=== PATIENT | male | born 1970 | race Caucasian/White ===

== ENCOUNTER 2018-08-13 06:13 | Emergency (ER) | payer OTHER ==
[2018-08-13 06:20] VITALS: BP 153/99; PULSE 85; RESP 18; TEMP 98.3
[2018-08-13] MEDS ORDERED: DEXAMETHASONE SOD PHOSPHATE 10 MG/ML 1 ML VIAL IM STA (07:14)
--- NOTE | 2018-08-13 07:17 | ED ---
General Adult HPI - General Chief complaint: ENT Stated complaint: Difficulty swallowing Time Seen by Provider: 08/13/18 07:02 Source: patient, RN notes reviewed Mode of arrival: ambulatory Limitations: no limitations - History of Present Illness Initial comments: Patient 47-year-old male presenting to the emergency room today with a chief complaint of a sore throat that started yesterday. He does admit that hurts when he swallows. Did see his family doctor yesterday. Was prescribed azithromycin. States did not take the first dose until this morning. Patient admits pain Mouth at night and had difficult time sleeping. Patient states he has been able to eat and drink but does have increased pain when he swallows. Patient denies any difficulty swallowing. He denies any other complaints or symptoms. Patient denies any recent fever, chills, shortness of breath, chest pain, back pain, abdominal pain, nausea or vomiting, numbness or tingling, headaches or visual changes, or any other complaints. - Related Data Home Medications Medication Instructions Recorded Confirmed Lansoprazole [Prevacid] 30 mg PO DAILY 07/16/14 01/17/16 Lisinopril-Hctz 10-12.5 mg 1 each PO DAILY 07/16/14 01/17/16 [Zestoretic 10-12.5] Allergies Allergy/AdvReac Type Severity Reaction Status Date / Time Penicillins Allergy Unknown Swelling Verified 08/13/18 06:20 Review of Systems ROS Statement: Those systems with pertinent positive or pertinent negative responses have been documented in the HPI. ROS Other: All systems not noted in ROS Statement are negative. Past Medical History Past Medical History: Hypertension Additional Past Medical History / Comment(s): RECENT BLOOD IN STOOL. Palpitations History of Any Multi-Drug Resistant Organisms: None Reported Additional Past Surgical History / Comment(s): CYST ON WRIST REMOVED. Loop recorder Past Anesthesia/Blood Transfusion Reactions: No Reported Reaction Past Psychological History: No Psychological Hx Reported Smoking Status: Former smoker Past Alcohol Use History: None Reported Past Drug Use History: None Reported General Exam - General Exam Comments Initial Comments: General: The patient is awake and alert, in no distress, and does not appear acutely ill. Eye: There is normal conjunctiva bilaterally. No signs of icterus. Ears, nose, mouth and throat: There are moist mucous membranes and no oral lesions. Uvula midline. Increased redness erythema to the posterior pharynx with positive exudate. Tonsils 2+. Neck: The neck is supple, there is no tenderness or JVD. Musculoskeletal: Normal ROM, no tenderness. Strength 5/5. Sensation intact. Pulses equal bilaterally 2+. Neurological: A&O x 3. CN II-XII intact, There are no obvious motor or sensory deficits. Coordination appears grossly intact. Speech is normal. Skin: Skin is warm and dry and no rashes or lesions are noted. Psychiatric: Cooperative, appropriate mood & affect, normal judgment. Limitations: no limitations Course Vital Signs 08/13/18 06:16 Temperature 98.3 F Pulse Rate 85 Respiratory 18 Rate Blood Pressure 153/99 O2 Sat by Pulse 99 Oximetry Medical Decision Making - Medical Decision Making 47-year-old male presenting for sore throat that started yesterday. States that did not start antibiotic to this morning. Patient does admit to soreness when he swallows. Uvula midline. Tonsils are 2+ with positive exudate. Patient was started on azithromycin due to ALLERGY to penicillin yesterday. Did take first dose this morning. Patient will be given dose of steroids here in emergency room. He is advised close follow-up return to the emergency room if any symptoms increase worsen. He states understanding and is in agreement. Disposition Clinical Impression: Acute pharyngitis Disposition: HOME SELF-CARE Condition: Good Instructions: Strep Throat (ED) Additional Instructions: Please continue antibiotics as previously described. Please use Tylenol/ ibuprofen for pain. Please follow-up with family doctor in the next 2 days of symptoms have not improved. Please return to emergency room if the symptoms increase or worsen or for any other concerns. Is patient prescribed a controlled substance at d/c from ED?: No Referrals: Marion Pierce DO [Primary Care Provider] - 1-2 days Time of Disposition: 07:17
== END 2018-08-13 07:41 | disposition home or self-care (01) ==
LOC: EC 06:13
DX: J02.9 Acute pharyngitis, unspecified (principal); I10 Essential (primary) hypertension; Z79.899 Other long term (current) drug therapy; Z88.0 Allergy status to penicillin; Z87.891 Personal history of nicotine dependence
CPT/HCPCS: 99283; 96372; J1100

== ENCOUNTER → 2018-08-17 | Outpatient (CLI) | payer OTHER ==
--- NOTE | 2018-08-17 11:32 | CT ---
EXAMINATION TYPE: CT soft tissue neck w con DATE OF EXAM: 08/17/2018 COMPARISON: None HISTORY: 47-year-old male with pain, Pharyngitis and peritonsillar abscess. TECHNIQUE: Contiguous axial scanning of the soft tissues of the neck performed with IV Contrast, morgan ent injected with 100 mL of Isovue M300. Coronal/sagittal reconstructions performed. CT DLP: 875 mGycm Automated exposure control for dose reduction was used. FINDINGS: Visualized intracranial structures, mastoid air cells, and orbits and globes appear intact. Large muc osal retention cyst along the floor of the left maxillary sinus. Rightward nasal septal deviation. Nasopharynx is clear. There is enlargement of the bilateral tubal and palatine tonsils, right greater than left. There is a 4 mm tonsilolith on the left. Prominent inflammation and edema is present along the right posterolateral oropharyngeal space along with prevertebral soft tissue thickening and some tracking retropharyngeal effusion down to the C5 le nabil. There is a right-sided peritonsillar abscess measuring 1.7 x 0.6 x 1.5 cm, refer to axial image 37 and coronal image 45. The asymmetric soft tissue swelling and inflammation causes enlargement of the right-sided strap musc les and right posterolateral hypopharyngeal region. Asymmetric effacement of the right piriform sinus . No abnormal effusion tracking down into the thorax. No yoana airway compromise is seen. Visualized upper lungs are clear. Thyroid, submandibular, and parotid glands appear satisfactory. Prominent upper cervical lymph nodes measure up to 1.4 cm, right greater than left, likely reactive. IMPRESSION: 1. RETROPHARYNGEAL CELLULITIS EXTENDING UP FROM THE TUBAL TONSILS DOWN ALONG THE RETROPHARYNGEAL LUISA ON TO THE C5 LEVEL. INFLAMMATION IS ASYMMETRICALLY GREATER ON THE RIGHT AND THERE IS A 1.7 CM RIGHT P ERITONSILLAR ABSCESS. 2. SOME REACTIVE VERSUS CONTIGUOUS INFLAMMATION OF THE RIGHT-SIDED STRAP MUSCLES. 3. 4 MM TONSILOLITH ON THE LEFT.
== END | disposition home or self-care (01) ==
LOC: RADCTMAIN 10:21
PROVIDERS: ATTEND Family Medicine
DX: J39.0 Retropharyngeal and parapharyngeal abscess (principal); J35.8 Other chronic diseases of tonsils and adenoids
CPT/HCPCS: 70491; Q9967

== ENCOUNTER → 2020-06-23 | Outpatient (CLI) | payer OTHER ==
--- NOTE | 2020-06-23 18:16 | MR ---
EXAMINATION TYPE: MR knee RT wo con DATE OF EXAM: 06/23/2020 COMPARISON: None available. HISTORY: Rt knee pain TECHNIQUE: Multiplanar, multisequence imaging of the right knee is performed without IV contrast. FINDINGS: MEDIAL MENISCUS: Mucoid degeneration with subtle horizontal tear of the body and posterior horn junct ion (series 301 image 6). LATERAL MENISCUS: Anterior and posterior horns are intact without tear. CRUCIATE LIGAMENTS: Moderate mucoid degeneration of the anterior and posterior cruciate ligaments wit hout full-thickness disruption. COLLATERAL LIGAMENTS: The medial collateral ligament and lateral collateral ligament complex are inta ct and unremarkable. EXTENSOR MECHANISM: Visualized quadriceps and patellar tendons are intact. EFFUSION: Small joint effusion. POPLITEAL CYST: No popliteal/forman cyst. TRICOMPARTMENT SPACES: Mild thinning of the medial compartment articular cartilage, otherwise intact also. CARTILAGE: No significant chondral defect. BONE MARROW SIGNAL: No focal abnormal marrow signal is appreciated. OTHER: No additional significant abnormality is appreciated. IMPRESSION: Mucoid degeneration of the medial meniscus with subtle horizontal tear of the body and posterior horn junction. Moderate mucoid degeneration of the anterior and posterior cruciate ligaments, can be seen with prior partial thickness injury. No evidence of full-thickness tear. Mild osteoarthritis of the medial compartment.
== END | disposition home or self-care (01) ==
LOC: RADMRIMAIN 14:50
PROVIDERS: ATTEND Family Medicine
DX: M17.11 Unilateral primary osteoarthritis, right knee (principal); S83.241A Other tear of medial meniscus, current injury, right knee, initial encounter

== ENCOUNTER → 2020-08-22 | Outpatient (CLI) | payer OTHER ==
--- NOTE | 2020-08-22 16:34 | CT ---
"EXAMINATION TYPE: CT abdomen w con DATE OF EXAM: 08/22/2020 COMPARISON: None. HISTORY: Right and left sided upper abdominal pain x3 weeks. Left lower quadrant pain and splenomegal y. CT DLP: 1342 mGycm, Automated Exposure Control for Dose Reduction was Utilized. CONTRAST: CT scan of the abdomen is performed with oral and with IV Contrast, patient injected with 100ml mL of Isovue 300. FINDINGS: LUNG BASES: No significant abnormality is appreciated. LIVER/GB: Markedly contracted gallbladder with 2 mm calcification towards the neck. Surrounding mild to moderate fat stranding or inflammatory change. PANCREAS: No significant abnormality is seen. SPLEEN: Mild splenomegaly at 13.5 cm long axis coronal image 75. ADRENALS: No significant abnormality is seen. KIDNEYS: No significant abnormality is seen. BOWEL: Oral contrast does not reach ileal level making evaluation of distal bowel slightly suboptimal . Scattered distal colonic diverticula. No CT evidence for acute diverticulitis. Normal-appearing soham endix seen from cecum. No suspicious small or large bowel dilatation. Fourth portion of duodenum does not extend to level of gastric antrum consistent with underlying malrotation. LYMPH NODES: No greater than 1cm abdominal lymph nodes are appreciated. OSSEOUS STRUCTURES: Iggs-kk-xmyolshm multilevel disc space narrowing. Posterior disc herniation effac es the anterior thecal sac L4-L5 level. OTHER: No significant additional abnormality is seen. IMPRESSION: Contracted gallbladder with 2 to 3 mm stone in neck and moderate surrounding inflammatory change. Possible acute cholecystitis. Correlate clinically. A [place] level critical message alert has been initiated for Marion Pierce DO via the [employer] 36 0 | Critical Results System on 08/22/2020 4:32 PM. This message alert has been sent to Marion Pierce DO via the preferences provided by the clinician for the receipt of Radiology Critical Findings. [facility] ID [id number]."
== END | disposition home or self-care (01) ==
LOC: RADCTMAIN 15:10
PROVIDERS: ATTEND Family Medicine
DX: K80.11 Calculus of gallbladder with chronic cholecystitis with obstruction (principal); R16.1 Splenomegaly, not elsewhere classified
CPT/HCPCS: 74160; Q9967

== ENCOUNTER → 2020-09-02 | Day surgery (SDC) | payer OTHER ==
[2020-08-29 14:22] VITALS: BMI 39.0
[~2020-09-02] MED LIST: ACETAMINOPHEN TAB 500 MG TAB PO PRN; BUPIVACAINE (PF) 0.5% 30 ML VIAL SQ ONE; CLINDAMYCIN 900 MG in DEXTROSE 5% IN WATER 50 ML IVPB PRN; DEXAMETHASONE SOD PHOSPHATE 4 MG/ML 1 ML VIAL IV ONE; GENTAMICIN 40 MG/ML 2 ML VIAL ONE; GENTAMICIN 440 MG in SODIUM CHLORIDE 0.9% 100 ML IVPB PRN; GLYCOPYRROLATE 0.2 MG/ML 2 ML VIAL ONE; HEPARIN SODIUM,PORCINE 5,000 UNIT/ML 1 ML VIAL SQ PRN; HYDROmorphone 0.5 MG/0.5 ML SYRINGE IVP PRN; KETOROLAC 15 MG/ML 1 ML VIAL ONE; LACTATED RINGERS 1,000 ML IV ONE; LACTATED RINGERS 1,000 ML IV SCH; LIDOCAINE 1% INJ 10MG/ML (20 ML MDV) ONE; MIDAZOLAM 2 MG/2 ML VIAL ONE; NEOSTIGMINE 1 MG/ML 10 ML VIAL ONE; ONDANSETRON 4 MG/2 ML VIAL IVP ONE; PROPOFOL 10 MG/ML 20 ML VIAL IV ONE; ROCURONIUM 10 MG/ML (10 ML VIAL) IV ONE; SUCCINYLCHOLINE CHLORIDE 100 MG/5 ML SYR IV ONE; ePHEDrine SULFATE/0.9% NACL/PF 50 MG/5 ML SYRINGE IV ONE; fentaNYL (PF) 50 MCG/ML 2 ML AMP ONE
[2020-09-02 09:34] LABS: ALT 22 U/L (4-49); AST 25 U/L (17-59); African American GFR (CKD) >90 (>60 ml/min/1.73 sqM); Albumin 4.7 g/dL (3.5-5.0); Alkaline Phosphatase 78 U/L (38-126); Anion Gap 10 mmol/L; Blood Urea Nitrogen 22 mg/dL (9-20); Calcium 9.6 mg/dL (8.4-10.2); Carbon Dioxide 25 mmol/L (22-30); Chloride 102 mmol/L (98-107); Glucose 97 mg/dL (74-99); Non-African American GFR(CKD) >90 (>60 ml/min/1.73 sqM); Potassium 4.5 mmol/L (3.5-5.1); Sodium 137 mmol/L (137-145); Total Bilirubin 1.1 mg/dL (0.2-1.3); Total Protein 7.7 g/dL (6.3-8.2)
--- NOTE | 2020-09-02 09:59 | P.GSHP ---
History of Present Illness H&P Date: 09/02/20 Chief Complaint: Right upper quadrant pain This a 49-year-old male presents today for laparoscopic cholecystectomy. Patient is a complete lower quadrant pain. He is known cholelithiasis Past Medical History Past Medical History: Atrial Flutter, GERD/Reflux, Hypertension Additional Past Medical History / Comment(s): hx h-pylori History of Any Multi-Drug Resistant Organisms: None Reported Additional Past Surgical History / Comment(s): CYST ON WRIST REMOVED. Loop recorder- currently. vasectomy Past Anesthesia/Blood Transfusion Reactions: No Reported Reaction Smoking Status: Former smoker - Past Family History Brother(s) Family Medical History: Blood Disorder Additional Family Medical History / Comment(s): un-named blood disorder- (platelet dysfunction treated with amicar) Father Family Medical History: Blood Disorder Additional Family Medical History / Comment(s): un-named blood disorder (platelet dysfunction treated with amicar) Medications and Allergies Home Medications Medication Instructions Recorded Confirmed Type Apixaban [Eliquis] 5 mg PO BID 08/29/20 09/02/20 History Metoprolol Tartrate [Lopressor] 50 mg PO BID 08/29/20 09/02/20 History Omeprazole [PriLOSEC] 20 mg PO AC-BRKFST 08/29/20 09/02/20 History lisinopriL 40 mg PO DAILY 08/29/20 09/02/20 History Allergies Allergy/AdvReac Type Severity Reaction Status Date / Time Penicillins Allergy Unknown Swelling Verified 09/02/20 08:44 Surgical - Exam Vital Signs Temp Pulse Resp BP Pulse Ox 97.1 F L 60 18 113/69 98 09/02/20 08:37 09/02/20 08:37 09/02/20 08:37 09/02/20 08:37 09/02/20 08:37 - General well developed, well nourished, no distress - Eyes PERRL - ENT normal pinna - Neck no masses - Respiratory normal expansion - Cardiovascular Rhythm: regular - Abdomen Abdomen: soft, non tender Results - Labs 09/02/20 08:50 Abnormal Lab Results - Last 24 Hours (Table) 09/02/20 Range/Units 08:50 BUN 22 H (9-20) mg/dL Diabetes panel 09/02/20 Range/Units 08:50 Sodium 137 (137-145) mmol/L Potassium 4.5 (3.5-5.1) mmol/L Chloride 102 (98-107) mmol/L Carbon Dioxide 25 (22-30) mmol/L BUN 22 H (9-20) mg/dL Creatinine 0.89 (0.66-1.25) mg/dL Glucose 97 (74-99) mg/dL Calcium 9.6 (8.4-10.2) mg/dL AST 25 (17-59) U/L ALT 22 (4-49) U/L Alkaline Phosphatase 78 (38-126) U/L Total Protein 7.7 (6.3-8.2) g/dL Albumin 4.7 (3.5-5.0) g/dL Calcium panel 09/02/20 Range/Units 08:50 Calcium 9.6 (8.4-10.2) mg/dL Albumin 4.7 (3.5-5.0) g/dL Pituitary panel 09/02/20 Range/Units 08:50 Sodium 137 (137-145) mmol/L Potassium 4.5 (3.5-5.1) mmol/L Chloride 102 (98-107) mmol/L Carbon Dioxide 25 (22-30) mmol/L BUN 22 H (9-20) mg/dL Creatinine 0.89 (0.66-1.25) mg/dL Glucose 97 (74-99) mg/dL Calcium 9.6 (8.4-10.2) mg/dL Adrenal panel 09/02/20 Range/Units 08:50 Sodium 137 (137-145) mmol/L Potassium 4.5 (3.5-5.1) mmol/L Chloride 102 (98-107) mmol/L Carbon Dioxide 25 (22-30) mmol/L BUN 22 H (9-20) mg/dL Creatinine 0.89 (0.66-1.25) mg/dL Glucose 97 (74-99) mg/dL Calcium 9.6 (8.4-10.2) mg/dL Total Bilirubin 1.1 (0.2-1.3) mg/dL AST 25 (17-59) U/L ALT 22 (4-49) U/L Alkaline Phosphatase 78 (38-126) U/L Total Protein 7.7 (6.3-8.2) g/dL Albumin 4.7 (3.5-5.0) g/dL Assessment and Plan Assessment: Chronically size Lithiasis We'll perform laparoscopically cholecystectomy
--- NOTE | 2020-09-02 11:05 | P.OP ---
Date of Procedure: 09/02/20 Preoperative Diagnosis: Cholecystitis Postoperative Diagnosis: Cholecystitis Procedure(s) Performed: Laparoscopic cholecystectomy Anesthesia: SHONA Surgeon: Az Bauer Estimated Blood Loss (ml): 5 Pathology: other (Gallbladder) Condition: stable Disposition: PACU Description of Procedure: The patient was placed on the operating table. The patient received a general endotracheal tube anesthesia. The patients abdomen was prepped and draped in the usual sterile fashion. Through an infraumbilical stab incision, the fascia of the anterior abdominal wall was grasped with a pair of Kochers and then the Veress needle was placed in the peritoneal cavity. Position of the Veress needle was confirmed with positive drop test. The abdomen was then insufflated. After adequate insufflation, the 10 mm trocar was placed in the peritoneal cavity. Following this the laparoscope was placed in the peritoneal cavity. The patient was placed in the head-up, right side up position and then a 5 mm trocar was placed in the right lateral and right subcostal position under direct visualization. A 8 mm trocar was placed in the epigastric position. The gallbladder was grasped in the fundus and infundibulum. Traction on the gallbladder was placed in the lateral and the cephalad positions. The triangle of Calot was visualized.. The cystic duct was bluntly dissected until the union of the cystic duct and common bile duct was seen. A critical view of safety was achieved. The cystic duct was then divided and sealed with the Harmonic scissors. A PDS Endoloop was then placed throughout the cystic duct stump. The cystic artery divided and sealed with the Harmonic scissors. The gallbladder was then removed from the liver bed using Harmonic scissors. The gallbladder was then extracted through the epigastric port site. Operative field was checked for any bleeding spots and Harmonic scissors was used to coagulate the liver bed. The abdomen was irrigated. The trocars were removed. The skin was closed using interrupted 3-0 Vicryl suture. Dermabond dressing were applied. The patient tolerated the procedure well.
[2020-09-02 11:26] VITALS: TEMP 97
[2020-09-02 11:31] VITALS: RESP 16
[2020-09-02 13:30] VITALS: BP 108/70; PULSE 89
== END | disposition home or self-care (01) ==
LOC: OR 08:21
PROVIDERS: ATTEND Surgery
DX: K81.1 Chronic cholecystitis (principal); E11.9 Type 2 diabetes mellitus without complications; I48.92 Unspecified atrial flutter; K21.9 Gastro-esophageal reflux disease without esophagitis; I10 Essential (primary) hypertension; Z86.19 Personal history of other infectious and parasitic diseases; Z98.890 Other specified postprocedural states; Z95.818 Presence of other cardiac implants and grafts; Z98.52 Vasectomy status; Z87.891 Personal history of nicotine dependence; Z79.01 Long term (current) use of anticoagulants; Z79.899 Other long term (current) drug therapy; Z88.0 Allergy status to penicillin; Z83.2 Family history of diseases of the blood and blood-forming organs and certain disorders involving the immune mechanism
CPT/HCPCS: 47562; 88304; 80053; J2250; J1644; J1100; J2710; J2405; J2001; J3010; J1885; J0330; J2704

== ENCOUNTER 2020-09-30 05:46 | Inpatient (IN) | payer OTHER ==
--- NOTE | 2020-09-30 06:05 | ED ---
Abdominal Pain HPI - General Source: patient, family, RN notes reviewed, old records reviewed Mode of arrival: ambulatory Limitations: no limitations - History of Present Illness MD Complaint: abdominal pain, other (Recheck for postop abdominal pain, cholecystectomy) -: days(s) Location: diffuse, RUQ, epigastric, R flank Radiation: R flank, back Migration to: R flank Severity: moderate Severity scale (1-10): 7 Quality: stabbing, aching Consistency: intermittent Improves With: nothing Worsens With: eating Context: recent surgery/procedure Associated Symptoms: nausea, vomiting <James Damon - Last Filed: 09/30/20 07:06> <Sukhjinder Lamb - Last Filed: 09/30/20 08:07> - General Chief Complaint: Chest Pain Stated Complaint: Chest pain Time Seen by Provider: 09/30/20 06:03 - History of Present Illness Initial Comments: This is a 50-year-old male to the ER for evaluation patient presents today for evaluation of abdominal pain epigastric abdominal pain right upper quadrant bowel pain with nausea. No vomiting symptoms worse with eating. Patient has recent gallbladder surgery with Dr. Bauer, patient states symptoms of been getting progressively worse and now he currently feels bloated with severe pain. Epigastric pain and nausea. (James Damon) - Related Data Home Medications Medication Instructions Recorded Confirmed Apixaban [Eliquis] 5 mg PO BID 08/29/20 09/30/20 Metoprolol Tartrate [Lopressor] 50 mg PO BID 08/29/20 09/30/20 Omeprazole [PriLOSEC] 20 mg PO AC-BRKFST 08/29/20 09/30/20 lisinopriL 40 mg PO DAILY 08/29/20 09/30/20 Allergies Allergy/AdvReac Type Severity Reaction Status Date / Time Penicillins Allergy Unknown Swelling Verified 09/30/20 07:09 Review of Systems ROS Other: All systems not noted in ROS Statement are negative. <James Damon - Last Filed: 09/30/20 07:06> ROS Other: All systems not noted in ROS Statement are negative. <Sukhjinder Lamb - Last Filed: 09/30/20 08:07> ROS Statement: Those systems with pertinent positive or pertinent negative responses have been documented in the HPI. Past Medical History Past Medical History: Atrial Flutter, GERD/Reflux, Hypertension Additional Past Medical History / Comment(s): hx h-pylori History of Any Multi-Drug Resistant Organisms: None Reported Past Surgical History: Cholecystectomy Additional Past Surgical History / Comment(s): CYST ON WRIST REMOVED. Loop recorder- currently. vasectomy Past Anesthesia/Blood Transfusion Reactions: No Reported Reaction Past Psychological History: No Psychological Hx Reported Smoking Status: Former smoker Past Alcohol Use History: None Reported Past Drug Use History: None Reported - Past Family History Brother(s) Family Medical History: Blood Disorder Additional Family Medical History / Comment(s): un-named blood disorder- (platelet dysfunction treated with amicar) Father Family Medical History: Blood Disorder Additional Family Medical History / Comment(s): un-named blood disorder (platelet dysfunction treated with amicar) <James Damon - Last Filed: 09/30/20 07:06> General Exam Limitations: no limitations General appearance: alert, in no apparent distress Head exam: Present: atraumatic, normocephalic, normal inspection Eye exam: Present: normal appearance, PERRL, EOMI. Absent: scleral icterus, conjunctival injection, periorbital swelling ENT exam: Present: normal exam, mucous membranes moist Neck exam: Present: normal inspection. Absent: tenderness, meningismus, lymphadenopathy Respiratory exam: Present: normal lung sounds bilaterally. Absent: respiratory distress, wheezes, rales, rhonchi, stridor Cardiovascular Exam: Present: regular rate, normal rhythm, normal heart sounds. Absent: systolic murmur, diastolic murmur, rubs, gallop, clicks GI/Abdominal exam: Present: soft, normal bowel sounds. Absent: distended, tenderness, guarding, rebound, rigid Extremities exam: Present: normal inspection, full ROM, normal capillary refill. Absent: tenderness, pedal edema, joint swelling, calf tenderness Back exam: Present: normal inspection Neurological exam: Present: alert, oriented X3, CN II-XII intact Psychiatric exam: Present: normal affect, normal mood Skin exam: Present: warm, dry, intact, normal color. Absent: rash <James Damon - Last Filed: 09/30/20 07:06> Course <James Damon Last Filed: 09/30/20 07:06> <Sukhjinder Lamb - Last Filed: 09/30/20 08:07> Vital Signs 09/30/20 09/30/20 05:49 07:21 Temperature 98.1 F Pulse Rate 100 85 Respiratory 22 20 Rate Blood Pressure 153/77 131/83 O2 Sat by Pulse 98 99 Oximetry - Reevaluation(s) Reevaluation #1: 09/30/20 06:17 medical records reviewed (James Damon) 09/30/20 08:06 There is concerns for potential sepsis diagnosed at 8 AM. Blood culture and lactic acid and IV antibiotics will be ordered. (Sukhjinder Lamb) Medical Decision Making - Lab Data Result diagrams: 09/30/20 06:05 09/30/20 06:05 - EKG Data -: EKG Interpreted by Me (EKG shows sinus rhythm 73 HI 152 QRS 78 QTc 424) <James Damon - Last Filed: 09/30/20 07:06> - Lab Data Result diagrams: 09/30/20 06:05 09/30/20 06:05 - Radiology Data Radiology results: report reviewed (CT angios of the chest is suboptimal study. No central saddle pulmonary embolism. Cannot exclude peripheral segmental and subsegmental PE. No suspicious acute process noted. Computed tomography scan abdomen and pelvis shows 2 mm distal common bile duct gallstone near the level of the duodenal am) <Sukhjinder Lamb - Last Filed: 09/30/20 08:07> - Medical Decision Making Patient reevaluated by myself, Dr. Lamb. Patient resting comfortably in bed. Patient updated on results and plan. Case was discussed in detail with Dr. caballero, who will admit covering for Dr. Christensen. Dr. Bauer has also been paged. Admission orders written. (Sukhjinder Lamb) - Lab Data Lab Results 09/30/20 09/30/20 09/30/20 Range/Units 06:05 06:05 06:05 WBC 7.4 (3.8-10.6) k/uL RBC 5.61 (4.30-5.90) m/uL Hgb 16.1 (13.0-17.5) gm/dL Hct 46.8 (39.0-53.0) % MCV 83.4 (80.0-100.0) fL MCH 28.8 (25.0-35.0) pg MCHC 34.5 (31.0-37.0) g/dL RDW 13.0 (11.5-15.5) % Plt Count 142 L (150-450) k/uL MPV 9.9 Neutrophils % 68 % Lymphocytes % 22 % Monocytes % 6 % Eosinophils % 3 % Basophils % 1 % Neutrophils # 5.0 (1.3-7.7) k/uL Lymphocytes # 1.6 (1.0-4.8) k/uL Monocytes # 0.4 (0-1.0) k/uL Eosinophils # 0.2 (0-0.7) k/uL Basophils # 0.0 (0-0.2) k/uL PT 10.3 (9.0-12.0) sec INR 1.0 (<1.2) APTT 25.7 (22.0-30.0) sec Sodium 138 (137-145) mmol/L Potassium 4.2 (3.5-5.1) mmol/L Chloride 102 (98-107) mmol/L Carbon Dioxide 25 (22-30) mmol/L Anion Gap 11 mmol/L BUN 23 H (9-20) mg/dL Creatinine 0.85 (0.66-1.25) mg/dL Est GFR (CKD-EPI)AfAm >90 (>60 ml/min/1.73 sqM) Est GFR (CKD-EPI)NonAf >90 (>60 ml/min/1.73 sqM) Glucose 107 H (74-99) mg/dL Calcium 9.4 (8.4-10.2) mg/dL Magnesium 2.2 (1.6-2.3) mg/dL Total Bilirubin 1.2 (0.2-1.3) mg/dL AST 75 H (17-59) U/L ALT 57 H (4-49) U/L Alkaline Phosphatase 88 (38-126) U/L Troponin I (0.000-0.034) ng/mL NT-Pro-B Natriuret Pep pg/mL Total Protein 7.7 (6.3-8.2) g/dL Albumin 4.7 (3.5-5.0) g/dL Lipase 54 (23-300) U/L 03/02/21 03/02/21 Range/Units 06:05 06:05 WBC (3.8-10.6) k/uL RBC (4.30-5.90) m/uL Hgb (13.0-17.5) gm/dL Hct (39.0-53.0) % MCV (80.0-100.0) fL MCH (25.0-35.0) pg MCHC (31.0-37.0) g/dL RDW (11.5-15.5) % Plt Count (150-450) k/uL MPV Neutrophils % % Lymphocytes % % Monocytes % % Eosinophils % % Basophils % % Neutrophils # (1.3-7.7) k/uL Lymphocytes # (1.0-4.8) k/uL Monocytes # (0-1.0) k/uL Eosinophils # (0-0.7) k/uL Basophils # (0-0.2) k/uL PT (9.0-12.0) sec INR (<1.2) APTT (22.0-30.0) sec Sodium (137-145) mmol/L Potassium (3.5-5.1) mmol/L Chloride (98-107) mmol/L Carbon Dioxide (22-30) mmol/L Anion Gap mmol/L BUN (9-20) mg/dL Creatinine (0.66-1.25) mg/dL Est GFR (CKD-EPI)AfAm (>60 ml/min/1.73 sqM) Est GFR (CKD-EPI)NonAf (>60 ml/min/1.73 sqM) Glucose (74-99) mg/dL Calcium (8.4-10.2) mg/dL Magnesium (1.6-2.3) mg/dL Total Bilirubin (0.2-1.3) mg/dL AST (17-59) U/L ALT (4-49) U/L Alkaline Phosphatase (38-126) U/L Troponin I <0.012 (0.000-0.034) ng/mL NT-Pro-B Natriuret Pep 87 pg/mL Total Protein (6.3-8.2) g/dL Albumin (3.5-5.0) g/dL Lipase (23-300) U/L Critical Care Time Critical Care Time: Yes Total Critical Care Time: 31 <Sukhjinder Lamb - Last Filed: 09/30/20 08:07> Disposition <James Damon - Last Filed: 09/30/20 07:06> Is patient prescribed a controlled substance at d/c from ED?: No Decision Time: 08:03 <Sukhjinder Lamb - Last Filed: 09/30/20 08:07> Clinical Impression: Common bile duct stone, Sepsis Disposition: ADMITTED IP TO THIS HOSP Condition: Serious Referrals: Marion Christensen DO [Primary Care Provider] - 1-2 days
[2020-09-30] MEDS ORDERED: MORPHINE SULFATE 4 MG/ML SYRINGE IVP STA (06:14)
[2020-09-30] MEDS ORDERED: ONDANSETRON 4 MG/2 ML VIAL IVP STA (06:14)
[2020-09-30] MEDS ORDERED: PANTOPRAZOLE 40 MG/10 ML VIAL IVP STA (06:14)
[2020-09-30 06:19] LABS: Basophils % (A) 1 %; Eosinophils # (A) 0.2 k/uL (0-0.7); Eosinophils % (A) 3 %; HCT 46.8 % (39.0-53.0); HGB 16.1 gm/dL (13.0-17.5); Lymphocytes # (A) 1.6 k/uL (1.0-4.8); Lymphocytes % (A) 22 %; MCH 28.8 pg (25.0-35.0); MCHC 34.5 g/dL (31.0-37.0); MCV 83.4 fL (80.0-100.0); Mean Platelet Volume 9.9; Monocytes # (A) 0.4 k/uL (0-1.0); Monocytes % (A) 6 %; Neutrophils % (A) 68 %; Platelet Count 142 k/uL (150-450); RBC 5.61 m/uL (4.30-5.90); WBC 7.4 k/uL (3.8-10.6)
[2020-09-30] MEDS: SODIUM CHLORIDE 0.9% 1,000 ML IV STA ×2 (06:30→08:31)
[2020-09-30 06:49] LABS: Partial Thromboplastin Time 25.7 sec (22.0-30.0); Prothrombin Time 10.3 sec (9.0-12.0)
[2020-09-30 06:50] LABS: ALT 57 U/L (4-49); AST 75 U/L (17-59); African American GFR (CKD) >90 (>60 ml/min/1.73 sqM); Albumin 4.7 g/dL (3.5-5.0); Alkaline Phosphatase 88 U/L (38-126); Anion Gap 11 mmol/L; Blood Urea Nitrogen 23 mg/dL (9-20); Calcium 9.4 mg/dL (8.4-10.2); Carbon Dioxide 25 mmol/L (22-30); Chloride 102 mmol/L (98-107); Glucose 107 mg/dL (74-99); Lipase 54 U/L (23-300); Magnesium 2.2 mg/dL (1.6-2.3); Non-African American GFR(CKD) >90 (>60 ml/min/1.73 sqM); Potassium 4.2 mmol/L (3.5-5.1); Sodium 138 mmol/L (137-145); Total Bilirubin 1.2 mg/dL (0.2-1.3); Total Protein 7.7 g/dL (6.3-8.2)
--- NOTE | 2020-09-30 07:32 | CT ---
EXAMINATION TYPE: CT angio chest DATE OF EXAM: 09/30/2020 7:17 AM COMPARISON: CT chest May 08, 2014 HISTORY: Chest pain CT DLP: 473.8 mGycm Automated exposure control for dose reduction was used. CONTRAST: CTA scan of the thorax is performed with IV Contrast, patient injected with 100 mL of Isovue 370, pul monary embolism protocol. MIP images are created and reviewed. FINDINGS: LUNGS: Current exam has some motion artifact degradation making evaluation suboptimal particularly fo r subcentimeter nodules mild linear scarring and/or atelectasis in the right middle lobe and lingula near diaphragm. No suspicious focal consolidation. No pleural effusion or pneumothorax. MEDIASTINUM: There is suboptimal study with most dense contrast in SVC and near equal contrast in rig ht and left heart systems, there is heterogeneity towards the periphery. No central saddle pulmonary embolism. Cannot exclude segmental and subsegmental pulmonary emboli in this study. There are stable prominent but subcentimeter mediastinal lymph nodes. Stable slightly enlarged subcarinal lymph node i mage 50. No pericardial effusion is seen. Heart size upper limits of normal. OTHER: Prominent but subcentimeter bilateral axillary lymph nodes are stable. Please refer to same d ay CT abdomen and pelvis report for details about the upper abdomen IMPRESSION: Suboptimal study without central saddle pulmonary embolism. Cannot exclude peripheral seg mental and subsegmental PE on this study. Patient unable to hold breath. No suspicious acute pulmonar y process noted.
--- NOTE | 2020-09-30 07:37 | CT ---
EXAMINATION TYPE: CT abdomen pelvis w con DATE OF EXAM: 09/30/2020 COMPARISON: CT abdomen August 22, 2020 HISTORY: epigastric pain CT DLP: 1177 mGycm, Automated Exposure Control for Dose Reduction was Utilized. CONTRAST: CT scan of the abdomen and pelvis is performed without oral but with IV Contrast, patient injected wi th 100 mL of Isovue 370. FINDINGS: LUNG BASES: Please refer to same day CTA chest report. LIVER/GB: Gallbladder shows improved distention from prior study. There is better visualization of ro ughly 5 mm gallstone axial image 22. There is [id number] pericholecystic fat stranding or infla mmatory change. There appears to be 2 mm punctate calculus on current study New from the Prior study in the distal common bile duct near ampulla coronal image 52. No significant increased biliary dilatation noted. PANCREAS: No significant abnormality is seen. SPLEEN: No significant abnormality is seen. ADRENALS: No significant abnormality is seen. KIDNEYS: Symmetric cortical medullary uptake and excretion without hydronephrosis seen bilaterally. BOWEL: No significant abnormality is seen. PROSTATE/SEMINAL VESICLES: No gross abnormality seen. LYMPH NODES: No greater than 1cm abdominal or pelvic lymph nodes are appreciated. OSSEOUS STRUCTURES: Mild multilevel anterior spurring. OTHER: Moderate-sized fat-containing left inguinal hernia. IMPRESSION: There is now 2 mm distal CBD gallstone near level of the duodenal ampulla with CT finding s consistent with acute cholecystitis, this is likely reactive in nature related to former. Advise ER CP to further evaluate and treat.
[2020-09-30] MEDS ORDERED: LEVOFLOXACIN 750MG-D5W PMX 750 MG in DEXTROSE/WATER 1 150ML.BAG IVPB STA (08:07)
[2020-09-30] MEDS ORDERED: NALOXONE 0.4 MG/ML 1 ML VIAL IV PRN (08:08)
[2020-09-30] MEDS ORDERED: ONDANSETRON 4 MG/2 ML VIAL IVP PRN (08:08)
[2020-09-30] MEDS: MORPHINE SULFATE 4 MG/ML SYRINGE IV PRN ×3 (10:05→19:25)
[2020-09-30] MEDS: metroNIDAZOLE-NS PMX 500 MG in SALINE 1 100ML.BAG IVPB SCH ×3 (10:06→23:57)
[2020-09-30] MEDS: SODIUM CHLORIDE 0.9% 1,000 ML IV SCH ×2 (14:01→16:09)
--- NOTE | 2020-09-30 16:21 | P.GSCN ---
History of Present Illness Consult date: 09/30/20 History of present illness: CHIEF COMPLAINT: Abdominal pain HISTORY OF PRESENT ILLNESS: Patient seen and examined with Dr. Bauer. This is a 50-year-old male who recently had laparoscopic Cholecystectomy on 09/02/[address] Bauer. Patient has a known medical history of atrial flutter, GERD and hypertension. He presents to emergency room with complaints of epigastric and right upper quadrant abdominal pain with nausea. He denies any vomiting. Computed tomography scan of the abdomen and pelvis there is now a 2 mm distal CBD gallstone near level of the duodenal ampulla with CT findings consistent with acute cholecystitis this is likely reactive in nature. Radiology did advise ERCP to further evaluate and treat. Surgical service was placed on consult regarding abdominal pain and common bile duct stone. PAST MEDICAL HISTORY: See list. PAST SURGICAL HISTORY: See list. MEDICATIONS: See list. ALLERGIES: See list. SOCIAL HISTORY: No illicit drug use. REVIEW OF SYSTEMS: CONSTITUTIONAL: Denies fever or chills. HEENT: Denies blurred vision, vision changes, or eye pain. Denies hemoptysis CARDIOVASCULAR: Denies chest pain or pressure. RESPIRATORY: No shortness of breath. GASTROINTESTINAL: See HPI for pertinent findings HEMATOLOGIC: Denies bleeding disorders. GENITOURINARY: Denies any blood in urine or increased urinary frequency. SKIN: Denies pruitis. Denies rash. PHYSICAL EXAM: VITAL SIGNS: Reviewed GENERAL: Well-developed in no acute distress. HEENT: No sclera icterus. Extraocular movements grossly intact. Moist buccal mucosa. Head is atraumatic, normocephalic. No nasal drainage. ABDOMEN: Soft. Nondistended. Tenderness with palpation to the epigastric and right upper quadrant area NEUROLOGIC: Alert and oriented. Cranial nerves II through XII grossly intact. LABORATORY DATA: WBC 7.4 Hgb 16.1 creatinine 0.85 lactic 0.6 total bili 1.2 AST 75 ALT 57 Lipase 54 IMAGING: Computed tomography scan of the abdomen and pelvis there is now a 2 mm distal CBD gallstone near level of the duodenal ampulla with CT findings consistent with acute cholecystitis this is likely reactive in nature. Radiology did advise ERCP to further evaluate and treat. CT of the chest suboptimal study without central saddle pulmonary embolism. Cannot exclude peripheral segmental and subsegmental PE on the study. Patient unable to hold breath. No suspicious acute pulmonary process noted. ASSESSMENT: 1. Epigastric and right upper quadrant abdominal pain possibly due to retained common bile duct stone 2. Recent laparoscopic cholecystectomy on 09/02/[address] Bauer 3. Elevated LFTs PLAN: -Agree with GI consult -Patient is scheduled for ERCP with GI service -Okay for clear liquid diet -Continue pain medication as needed -Continue IV fluids -Follow up on labs in a.m. -No surgical intervention planned Thank you for this consultation Physician Carpenter Labor Supervisor note has been reviewed by physician. Signing provider agrees with the documented findings, assessment, and plan of care. Past Medical History Past Medical History: Atrial Flutter, GERD/Reflux, GI Bleed, Hypertension Additional Past Medical History / Comment(s): hx h-pylori, antral ulcer History of Any Multi-Drug Resistant Organisms: None Reported Past Surgical History: Cholecystectomy Additional Past Surgical History / Comment(s): 09/02/20 lap marla, L wrist ganglion cystectomy, loop recorder, EGD, vasectomy Past Anesthesia/Blood Transfusion Reactions: No Reported Reaction Type of Cardiac Device: Loop Device Placement Date:: 2016 Smoking Status: Former smoker - Past Family History Brother(s) Family Medical History: Blood Disorder Additional Family Medical History / Comment(s): un-named blood disorder- (platelet dysfunction treated with amicar) Father Family Medical History: Blood Disorder Additional Family Medical History / Comment(s): un-named blood disorder (platele t dysfunction treated with amicar) Mother Family Medical History: Hypertension Medications and Allergies Home Medications Medication Instructions Recorded Confirmed Type Apixaban [Eliquis] 5 mg PO BID 08/29/20 09/30/20 History Metoprolol Tartrate [Lopressor] 50 mg PO BID 08/29/20 09/30/20 History Omeprazole [PriLOSEC] 20 mg PO AC-BRKFST 08/29/20 09/30/20 History lisinopriL 40 mg PO DAILY 08/29/20 09/30/20 History Allergies Allergy/AdvReac Type Severity Reaction Status Date / Time Penicillins Allergy Unknown Swelling Verified 09/30/20 07:09 Surgical - Exam Vital Signs Temp Pulse Resp BP Pulse Ox 98.1 F 100 22 153/77 98 09/30/20 05:49 09/30/20 05:49 09/30/20 05:49 09/30/20 05:49 09/30/20 05:49 Results - Labs 09/30/20 06:05 09/30/20 06:05 Abnormal Lab Results - Last 24 Hours (Table) 09/30/20 09/30/20 09/30/20 Range/Units 06:05 06:05 08:15 Plt Count 142 L (150-450) k/uL BUN 23 H (9-20) mg/dL Glucose 107 H (74-99) mg/dL Plasma Lactic Acid Fortino 0.6 L (0.7-2.0) mmol/L AST 75 H (17-59) U/L ALT 57 H (4-49) U/L Diabetes panel 09/30/20 Range/Units 06:05 Sodium 138 (137-145) mmol/L Potassium 4.2 (3.5-5.1) mmol/L Chloride 102 (98-107) mmol/L Carbon Dioxide 25 (22-30) mmol/L BUN 23 H (9-20) mg/dL Creatinine 0.85 (0.66-1.25) mg/dL Glucose 107 H (74-99) mg/dL Calcium 9.4 (8.4-10.2) mg/dL AST 75 H (17-59) U/L ALT 57 H (4-49) U/L Alkaline Phosphatase 88 (38-126) U/L Total Protein 7.7 (6.3-8.2) g/dL Albumin 4.7 (3.5-5.0) g/dL Calcium panel 09/30/20 Range/Units 06:05 Calcium 9.4 (8.4-10.2) mg/dL Albumin 4.7 (3.5-5.0) g/dL Pituitary panel 09/30/20 Range/Units 06:05 Sodium 138 (137-145) mmol/L Potassium 4.2 (3.5-5.1) mmol/L Chloride 102 (98-107) mmol/L Carbon Dioxide 25 (22-30) mmol/L BUN 23 H (9-20) mg/dL Creatinine 0.85 (0.66-1.25) mg/dL Glucose 107 H (74-99) mg/dL Calcium 9.4 (8.4-10.2) mg/dL Adrenal panel 09/30/20 Range/Units 06:05 Sodium 138 (137-145) mmol/L Potassium 4.2 (3.5-5.1) mmol/L Chloride 102 (98-107) mmol/L Carbon Dioxide 25 (22-30) mmol/L BUN 23 H (9-20) mg/dL Creatinine 0.85 (0.66-1.25) mg/dL Glucose 107 H (74-99) mg/dL Calcium 9.4 (8.4-10.2) mg/dL Total Bilirubin 1.2 (0.2-1.3) mg/dL AST 75 H (17-59) U/L ALT 57 H (4-49) U/L Alkaline Phosphatase 88 (38-126) U/L Total Protein 7.7 (6.3-8.2) g/dL Albumin 4.7 (3.5-5.0) g/dL
--- NOTE | 2020-09-30 18:53 | CONS ---
CONSULTATION DATE OF DICTATION: 09/30/2020 REASON FOR CONSULTATION: Abdominal pain and possible CBD stone. HISTORY OF PRESENT ILLNESS: The patient is a 50-year-old pleasant white male who underwent laparoscopic cholecystectomy about a month ago by Dr. Bauer for symptomatic gallstones. He did well. He presented to the hospital with acute onset of severe epigastric and right upper quadrant abdominal pain that started yesterday evening and continued to progressively get worse. He came to the emergency room, had a CT of the abdomen and pelvis done that showed a 2 mm distal common bile duct stone, and hence we are consulted for possible ERCP. The patient states that he had a similar episode last Tuesday that lasted for 6 hours and it resolved. He denies any fever, chills or night sweats. Reports no nausea or vomiting. PAST MEDICAL HISTORY: History of atrial fibrillation, on Eliquis, currently on hold since yesterday, GERD, hypertension. PAST SURGICAL HISTORY: Cholecystectomy one month ago, left wrist ganglion surgery, history of vasectomy and EGD in the past. MEDICATIONS AT HOME: Medications at home include Eliquis, Lopressor, Prilosec, lisinopril. ALLERGIES: PENICILLIN. SOCIAL HISTORY: No smoking. No alcohol use. FAMILY HISTORY: Brother had some kind of a blood disorder. Father had a blood disorder, too. Mother had hypertension. REVIEW OF SYSTEMS: CARDIOPULMONARY: No chest pain or shortness of breath. GENITOURINARY: No dysuria or hematuria. MUSCULOSKELETAL: Unremarkable. SKIN: Unremarkable. ENDOCRINE: Unremarkable. PSYCHIATRIC: Unremarkable. NEUROLOGY: Unremarkable. ENT/VISION: Unremarkable. CONSTITUTIONAL: No recent weight loss. No fever, chills, night sweats. HEMATOLOGY: Unremarkable. PHYSICAL EXAMINATION: Appears comfortable. VITAL SIGNS: Stable. Blood pressure 132/85, pulse rate 70, temperature 99. HEENT examination unremarkable. Conjunctivae pink. Sclerae anicteric. Oral cavity no lesions. NECK: No JVD or lymph node enlargement. CHEST: Clear to auscultation. HEART: Regular rate and rhythm. ABDOMEN: Soft. Tenderness in the epigastric area. Bowel sounds are positive. No organomegaly. EXTREMITIES: No pedal edema. NEUROLOGIC: Alert and oriented x3. No focal deficits. LABS: WBC 7.4, hemoglobin 16.1, platelets 142. Basic metabolic panel is within normal limits. AST and ALT are 75 and 57, respectively. T-bilirubin and alkaline phosphatase are within normal limits. CT of the abdomen showed a 2 mm calculus in the distal common bile duct. IMPRESSION: This is a patient who presented to the hospital with acute onset of severe epigastric and right upper quadrant abdominal pain that started early this morning; he had a similar episode on Tuesday that lasted for 6 hours and resolved. He is status post gallbladder surgery for symptomatic gallstones about a month ago. He was noted to have mild elevation of serum transaminases and CT scan of the abdomen showed a 2 mm calculus in the distal common bile duct suspicious for a CBD stone. RECOMMENDATIONS: 1. Start him on a clear liquid diet. 2. Continue to hold Eliquis. 3. Repeat labs in the morning. 4. The patient was already started on antibiotics, which he can be continued on for now. 5. Will proceed with ERCP. Discussed with him risks, benefits and complications, including acute pancreatitis and bleeding. He is agreeable to it. Thank you for this consultation. MMODL / IJN: [id number] /
[2020-09-30] MEDS: METOPROLOL TARTRATE 50 MG TAB PO SCH (20:05)
[2020-10-01] MEDS: SODIUM CHLORIDE 0.9% 1,000 ML IV SCH ×3 (02:23→20:08)
[2020-10-01] MEDS: MORPHINE SULFATE 4 MG/ML SYRINGE IV PRN ×2 (04:23→08:35)
[2020-10-01] MEDS: metroNIDAZOLE-NS PMX 500 MG in SALINE 1 100ML.BAG IVPB SCH ×3 (08:34→23:35)
[2020-10-01] MEDS: PANTOPRAZOLE 40 MG/10 ML VIAL IV SCH (08:34)
[2020-10-01] MEDS: lisinopriL 20 MG TAB PO SCH (08:34)
[2020-10-01] MEDS: METOPROLOL TARTRATE 50 MG TAB PO SCH ×2 (08:34→20:08)
[2020-10-01 09:06] LABS: Basophils # (A) 0.04 X 10*3/uL (0.00-0.10); Basophils % (A) 1.2 %; Eosinophils # (A) 0.07 X 10*3/uL (0.04-0.35); HCT 41.3 % (39.6-50.0); HGB 13.7 g/dL (13.0-17.0); Lymphocytes # (A) 0.85 X 10*3/uL (0.90-5.00); Lymphocytes % (A) 24.7 %; MCH 28.2 pg (27.0-32.0); MCHC 33.2 g/dL (32.0-37.0); MCV 85.2 fL (80.0-97.0); Mean Platelet Volume 12.7 fL (9.5-12.2); Monocytes # (A) 0.46 X 10*3/uL (0.20-1.00); Monocytes % (A) 13.4 %; Neutrophils # (A) 2.01 X 10*3/uL (1.80-7.70); Neutrophils % (A) 58.4 %; Platelet Count 119 X 10*3/uL (140-440); RBC 4.85 X 10*6/uL (4.40-5.60); RDW 13.2 % (11.5-14.5); WBC 3.44 X 10*3/uL (4.50-10.00)
[2020-10-01] MEDS ORDERED: PROMETHAZINE 25 MG TAB PO PRN (09:39)
[2020-10-01] MEDS: LEVOFLOXACIN 750MG-D5W PMX 750 MG in DEXTROSE/WATER 1 150ML.BAG IVPB SCH (10:07)
--- NOTE | 2020-10-01 11:12 | P.HPIM ---
History of Present Illness H&P Date: 09/30/20 Chief Complaint: Abdominal pain 50-year-old male to the ER for evaluation patient presents today for evaluation of abdominal pain epigastric abdominal pain right upper quadrant bowel pain with nausea. No vomiting symptoms worse with eating. Patient has recent gallbladder surgery with Dr. Bauer, patient states symptoms of been getting progressively worse and now he currently feels bloated with severe pain. Epigastric pain and nausea. CT angios of the chest is suboptimal study. No central saddle pulmonary embolism. Cannot exclude peripheral segmental and subsegmental PE. No suspicious acute process noted. Computed tomography scan abdomen and pelvis shows 2 mm distal common bile duct gallstone near the level of the duodenal ampulla EKG Interpreted by Me (EKG shows sinus rhythm 73 AK 152 QRS 78 QTc 424) Review of Systems REVIEW OF SYSTEMS: CONSTITUTIONAL: No fever, no malaise, no fatigue. HEENT: No recent visual problems or hearing problems. Denied any sore throat. CARDIOVASCULAR: No chest pain, orthopnea, PND, no palpitations, no syncope. PULMONARY: No shortness of breath, no cough, no hemoptysis. GASTROINTESTINAL: No diarrhea, no nausea, no vomiting, no abdominal pain. NEUROLOGICAL: No headaches, no weakness, no numbness. HEMATOLOGICAL: Denies any bleeding or petechiae. GENITOURINARY: Denies any burning micturition, frequency, or urgency. MUSCULOSKELETAL/RHEUMATOLOGICAL: Denies any joint pain, swelling, or any muscle pain. ENDOCRINE: Denies any polyuria or polydipsia. The rest of the 14-point review of systems is negative. Past Medical History Past Medical History: Atrial Flutter, GERD/Reflux, Hypertension Additional Past Medical History / Comment(s): hx h-pylori History of Any Multi-Drug Resistant Organisms: None Reported Past Surgical History: Cholecystectomy Additional Past Surgical History / Comment(s): CYST ON WRIST REMOVED. Loop recorder- currently. vasectomy Past Anesthesia/Blood Transfusion Reactions: No Reported Reaction Past Psychological History: No Psychological Hx Reported Smoking Status: Former smoker Past Alcohol Use History: None Reported Past Drug Use History: None Reported - Past Family History Brother(s) Family Medical History: Blood Disorder Additional Family Medical History / Comment(s): un-named blood disorder- (platelet dysfunction treated with amicar) Father Family Medical History: Blood Disorder Additional Family Medical History / Comment(s): un-named blood disorder (platelet dysfunction treated with amicar) Mother Family Medical History: Hypertension Medications and Allergies Home Medications Medication Instructions Recorded Confirmed Type Apixaban [Eliquis] 5 mg PO BID 08/29/20 09/30/20 History Metoprolol Tartrate [Lopressor] 50 mg PO BID 08/29/20 09/30/20 History Omeprazole [PriLOSEC] 20 mg PO AC-BRKFST 08/29/20 09/30/20 History lisinopriL 40 mg PO DAILY 08/29/20 09/30/20 History Allergies Allergy/AdvReac Type Severity Reaction Status Date / Time Penicillins Allergy Unknown Swelling Verified 09/30/20 07:09 Physical Exam Vitals: Vital Signs Temp Pulse Resp BP Pulse Ox 09/30/20 09:38 97.9 F 88 18 128/68 99 09/30/20 07:21 85 20 131/83 99 09/30/20 05:49 98.1 F 100 22 153/77 98 Intake and Output 09/29/20 09/30/20 09/30/20 22:59 06:59 14:59 Other: Weight 117.027 kg General appearance: Present: average body habitus, cooperative, no acute distres Eyes: Present: anicteric sclerae, EOMI, PERRLA, normal appearance ENT: Present: hearing grossly normal, normal oropharynx Ears: bilateral: normal Neck: Present: normal ROM. Absent: lymphadenopathy, rigidity, thyromegaly Carotids: negative: bruit present Thyroid: bilateral: normal size, negative: enlarged, nodule Respiratory: bilateral: CTA, negative: rales, rhonchi, wheezing Rhythm: regular;normal: S1, S2 Abnormal Heart Sounds: Absent: systolic murmur, diastolic murmur General gastrointestinal: Present: normal bowel sounds, soft; diffuse, RUQ, epigastric, R flank tenderness Genitourinary Comment(s): deferred Integumentary: Present: normal turgor. Absent: jaundiced, rash, ulcer Neurologic: Present: CNII-XII intact. Absent: focal deficits Musculoskeletal: Present: gait normal, strength equal bilaterally Psychiatric: Present: A&O x's 3, appropriate affect, intact judgment & insight Results CBC & Chem 7: 10/01/20 04:54 09/30/20 06:05 Labs: Abnormal Lab Results - Last 24 Hours (Table) 09/30/20 09/30/20 09/30/20 Range/Units 06:05 06:05 08:15 Plt Count 142 L (150-450) k/uL BUN 23 H (9-20) mg/dL Glucose 107 H (74-99) mg/dL Plasma Lactic Acid Fortino 0.6 L (0.7-2.0) mmol/L AST 75 H (17-59) U/L ALT 57 H (4-49) U/L Assessment and Plan Assessment: 1. Choledocholithiasis; history of recent laparoscopic cholecystectomy on 09/02/2020 - patient has mild elevation of LFTs; no fever and white blood count is normal - Patient is started on IV antibiotics; continue with IV fluids; surgery on board and have started patient on a clear liquid diet; pain control with IV medications - Protonix 40 mg IV daily - GI is consulted and patient is scheduled for ERCP 2. Hypertension; continue with lisinopril 40 mg daily along with metoprolol 50 mg twice a day 3. History of A. Fibrillation/flutter; patient remains rate controlled on metoprolol; anticoagulation therapy with Eliquis 5 mg twice a day DVT prophylaxis; SCDs only; Eliqis put on hold pending ERCP CODE STATUS; full code
[2020-10-01 11:44] LABS: African American GFR (CKD) 115.8 (60.0-200.0); Albumin 4.2 g/dL (3.80-4.90); BUN/Creat Ratio 12.22 Ratio (12.00-20.00); Calcium 8.8 mg/dL (8.7-10.3); Globulin 2.1 g/dL (1.6-3.3); Non-African American GFR(CKD) 99.9 (60.0-200.0); Potassium 4.4 mmol/L (3.5-5.5); Total Protein 6.3 g/dL (6.2-8.2)
[2020-10-01 11:48] LABS: ALT 388 U/L (4-49); AST 236 U/L (17-59); African American GFR (CKD) >90 (>60 ml/min/1.73 sqM); Albumin 4.2 g/dL (3.5-5.0); Albumin/Globulin Ratio 1.6; Alkaline Phosphatase 164 U/L (38-126); Anion Gap 8 mmol/L; Blood Urea Nitrogen 9 mg/dL (9-20); Calcium 9.1 mg/dL (8.4-10.2); Carbon Dioxide 27 mmol/L (22-30); Chloride 103 mmol/L (98-107); Globulin 2.6 g/dL; Glucose 106 mg/dL (74-99); Non-African American GFR(CKD) >90 (>60 ml/min/1.73 sqM); Potassium 4.8 mmol/L (3.5-5.1); Sodium 138 mmol/L (137-145); Total Bilirubin 5.2 mg/dL (0.2-1.3); Total Protein 6.8 g/dL (6.3-8.2)
[2020-10-01] MEDS ORDERED: INDOMETHACIN 50MG SUPPOSITORY RECTAL ONE (12:30)
[2020-10-01] MEDS ORDERED: ONDANSETRON 4 MG/2 ML VIAL IVP PRN (13:14)
[2020-10-01] MEDS ORDERED: SUCCINYLCHOLINE CHLORIDE 100 MG/5 ML SYR IV ONE (13:45)
[2020-10-01] MEDS ORDERED: PROPOFOL 10 MG/ML 20 ML VIAL IV ONE (13:45)
[2020-10-01] MEDS ORDERED: MIDAZOLAM 2 MG/2 ML VIAL ONE (13:45)
[2020-10-01] MEDS ORDERED: ONDANSETRON 4 MG/2 ML VIAL ONE (13:45)
[2020-10-01] MEDS ORDERED: fentaNYL (PF) 50 MCG/ML 2 ML AMP ONE (13:45)
[2020-10-01] MEDS ORDERED: IV FLUID CONTINUATION 400 ML IV ONE (13:45)
[2020-10-01] MEDS ORDERED: LIDOCAINE 1% INJ 10MG/ML (20 ML MDV) ONE (13:45)
[2020-10-01] MEDS ORDERED: IOPAMIDOL-300 50ML BTL MISCELLANE ONE (14:08)
[2020-10-01] MEDS ORDERED: LACTATED RINGERS 1,000 ML IV ONE ×2 (14:21)
--- NOTE | 2020-10-01 14:26 | P.PCN ---
Date of Procedure: 10/01/20 Procedure(s) Performed: Brief history: Patient is a 50 year-old pleasant 8 male scheduled for an ERCP as part of evaluation of abdominal pain and elevated serum transaminases and jaundice for the last 2 days' duration. He is status post gallbladder surgery a month ago for symptomatic gallstones. Labs from today revealed a bilirubin of 5.2 and elevated serum transaminases. CT of the abdomen done yesterday showed a 2 mm distal common bile duct stone. He is hence scheduled for an ERCP for CBD stone extraction Procedure performed: ERCP with biliary sphincterotomy and balloon extraction Preoperative diagnoses: Severe epigastric and right upper quadrant abdominal pain and elevated LFTs and jaundice IV sedation per anesthesia: Procedure: After informed consent was obtained from the patient and after the risks benefits and complications including bleeding perforation and pancreatitis explained in detail the patient was brought into the endoscopy unit. The patient was placed in prone position and IV conscious sedation was administered by anesthesia under continuous monitoring. The Olympus side-viewing duodenoscope was then inserted into the mouth and esophagus intubated without any difficulty. The scope was gradually advanced into the stomach and duodenum. The major papilla was identified without any difficulty. Initial cannulation with the guidewire technique resulted in visualization of the common bile duct. At this time the dye was injected and after opacification the CBD appeared 5-6 mm in diameter with no obvious filling defects noted. There was a faint shadow noted in the distal common bile duct. No intrahepatic biliary ductal dilation seen. At this time a biliary sphincterotomy was performed over a guidewire an 11 o'clock position and was extended to 1 cm. Following this 11.5 mm balloon was passed over the guidewire into the proximal CBD, inflated and gently wit hdrawn and there was small amount of sludge noted exiting the ampulla. No obvious stones were seen. An occlusion cholangiogram was performed and no filling defects were noted. At this time the procedure was terminated. The pancreatic duct was intentionally not cannulated. Patient tolerated the procedure well. Impression: Normal-appearing common bile duct with a faint filling deficit in the distal common bile duct status post biliary sphincterotomy and balloon extraction as described above. No stones seen in the ampulla but there was small amount of sludgy material that was extracted. Pancreatic duct was not intentionally cannulated Recommendations: The findings of this examination were discussed with the patient as well as a family. He'll be started on a clear liquid diet. Repeat labs in the morning. Continue antibiotics.
--- NOTE | 2020-10-01 15:37 | P.PN ---
Subjective Progress Note Date: 10/01/20 CHIEF COMPLAINT: Abdominal pain HISTORY OF PRESENT ILLNESS: Surgical service is following regards to patient's abdominal pain. He is scheduled for ERCP this afternoon. He is still complaining of right upper quadrant pain. Pains controlled with pain medication. Afebrile. WBC 3.44 total bili 5.2 AST 236 ALT 388 alk phos 164 PHYSICAL EXAM: VITAL SIGNS: Reviewed. GENERAL: Well-developed in no acute distress. HEENT: No sclera icterus. Extraocular movements grossly intact. Moist buccal mucosa. Head is atraumatic, normocephalic. ABDOMEN: Soft. Nondistended. Tenderness with palpation of the right upper quadrant NEUROLOGIC: Alert and oriented. Cranial nerves II through XII grossly intact. ASSESSMENT: 1. Epigastric and right upper quadrant abdominal pain possibly due to retained common bile duct stone 2. Recent laparoscopic cholecystectomy on 09/02/[address] Bauer 3. Elevated LFTs PLAN: -Patient scheduled for ERCP today -Continue supportive care Physician Store Standards Associate note has been reviewed by physician. Signing provider agrees with the documented findings, assessment, and plan of care. Objective - Vital Signs Vital signs: Vital Signs Temp 98 F 10/01/20 14:44 Pulse 84 10/01/20 15:03 Resp 18 10/01/20 15:03 BP 126/79 10/01/20 15:03 Pulse Ox 98 10/01/20 15:03 Intake & Output 09/30/20 10/01/20 10/01/20 18:59 06:59 18:59 Intake Total 500 2237 800 Balance 500 2237 800 Weight 117.027 kg Intake: IV 800 Intake, IV Titration 1760 Amount Sodium Chloride 0.9% 1, 800 000 ml @ 100 mls/hr IV . Q10H STA Rx#:[id number] Sodium Chloride 0.9% 1, 960 000 ml @ 120 mls/hr IV . Q8H20M SUNDAY Rx#:[id number] Oral 500 477 Other: # Voids 1 2 1 - Labs CBC & Chem 7: 10/01/20 04:54 10/01/20 11:07 Labs: Abnormal Lab Results - Last 24 Hours (Table) 10/01/20 10/01/20 10/01/20 Range/Units 04:54 04:54 11:07 WBC 3.44 L (4.50-10.00) X 10*3/uL Plt Count 119 L (140-440) X 10*3/uL MPV 12.7 H (9.5-12.2) fL Lymphocytes # 0.85 L (0.90-5.00) X 10*3/uL Glucose 106 H (74-99) mg/dL Total Bilirubin 4.0 H 5.2 H (0.2-1.2) mg/dL AST 259 H 236 H (14-35) U/L ALT 387 H 388 H (10-49) U/L Alkaline Phosphatase 167 H 164 H (41-126) U/L Microbiology - Last 24 Hours (Table) 09/30/20 08:35 Blood Culture - Preliminary Blood No Growth after 24 hours 09/30/20 08:15 Blood Culture - Preliminary Blood No Growth after 24 hours
--- NOTE | 2020-10-01 16:29 | FL ---
Fluoroscopy HISTORY: Pain in right upper quadrant status post cholecystectomy 12 seconds fluoroscopy time supplied to the referring clinician. 7 intraoperative C-arm images docum ent the procedure. See dictated report from gastroenterology.
[2020-10-02] MEDS: SODIUM CHLORIDE 0.9% 1,000 ML IV SCH ×2 (00:12→08:00)
[2020-10-02 07:56] VITALS: PULSE 60
[2020-10-02] MEDS: LEVOFLOXACIN 750MG-D5W PMX 750 MG in DEXTROSE/WATER 1 150ML.BAG IVPB SCH (07:56)
[2020-10-02] MEDS: PANTOPRAZOLE 40 MG/10 ML VIAL IV SCH (07:59)
[2020-10-02] MEDS: METOPROLOL TARTRATE 50 MG TAB PO SCH (08:00)
[2020-10-02] MEDS: lisinopriL 20 MG TAB PO SCH (08:00)
[2020-10-02] MEDS: metroNIDAZOLE-NS PMX 500 MG in SALINE 1 100ML.BAG IVPB SCH ×2 (09:15→15:19)
--- NOTE | 2020-10-02 13:37 | P.PN ---
Subjective Progress Note Date: 10/02/20 CHIEF COMPLAINT: Abdominal pain HISTORY OF PRESENT ILLNESS: Surgical service is following regards to patient's abdominal pain. Patient reports improvement in his abdominal pain. He is status post ERCP which did have sludge but no evidence of stones. He is tolerating diet. Afebrile. Labs for today are pending he is on low-fat diet PHYSICAL EXAM: VITAL SIGNS: Reviewed. GENERAL: Well-developed in no acute distress. HEENT: No sclera icterus. Extraocular movements grossly intact. Moist buccal mucosa. Head is atraumatic, normocephalic. ABDOMEN: Soft. Nondistended. Tenderness with palpation of the right upper quadrant NEUROLOGIC: Alert and oriented. Cranial nerves II through XII grossly intact. ASSESSMENT: 1. Epigastric and right upper quadrant abdominal pain possibly due to retained common bile duct stone status post ERCP which did have evidence of sludge but no stones. 2. Recent laparoscopic cholecystectomy on 09/02/[address] Brown 3. Elevated LFTs PLAN: -Patient is stable for discharge from surgical standpoint -Patient to follow-up with Dr. brown in 1 week Physician Nurse Administrator note has been reviewed by physician. Signing provider agrees with the documented findings, assessment, and plan of care. Objective - Vital Signs Vital signs: Vital Signs Temp 97.9 F 10/02/20 07:00 Pulse 60 10/02/20 07:00 Resp 14 10/02/20 07:00 BP 123/80 10/02/20 07:00 Pulse Ox 98 10/02/20 07:00 Intake & Output 10/01/20 10/02/20 10/02/20 18:59 06:59 18:59 Intake Total 1200 1505 Balance 1200 1505 Intake: IV 800 Intake, IV Titration 960 Amount Sodium Chloride 0.9% 1, 960 000 ml @ 120 mls/hr IV . Q8H20M SUNDAY Rx#:[id number] Oral 400 545 Other: # Voids 1 1 - Labs CBC & Chem 7: 10/01/20 04:54 10/01/20 11:07 Labs: Microbiology - Last 24 Hours (Table) 09/30/20 08:35 Blood Culture - Preliminary Blood No Growth after 48 hours 09/30/20 08:15 Blood Culture - Preliminary Blood No Growth after 48 hours
[2020-10-02 13:51] VITALS: BP 149/92; RESP 18; TEMP 98.3
[2020-10-02 16:07] LABS: Albumin 4.2 g/dL (3.80-4.90); Albumin/Globulin Ratio 2.21 (1.60-3.17); Anion Gap 11.5 mmol/L (4.00-12.00); Calcium 8.8 mg/dL (8.7-10.3); Carbon Dioxide 23.5 mmol/L (21.6-31.8); Globulin 1.9 g/dL (1.6-3.3); Potassium 4.2 mmol/L (3.5-5.5); Total Bilirubin 1.8 mg/dL (0.2-1.2); Total Protein 6.1 g/dL (6.2-8.2)
--- NOTE | 2020-10-02 16:54 | P.PN ---
Subjective Progress Note Date: 10/02/20 Principal diagnosis: Abdominal pain with possible CBD stone This a pleasant 50-year-old male who underwent laparoscopic cholecystectomy about one month ago with Dr. Bauer for symptomatic gallstones. He presented to the emergency department 2 days ago with acute onset of right upper quadrant and epigastric pain with nausea and vomiting. CT of the abdomen and pelvis showed a 2 mm distal common bile duct stone and hence the patient underwent an ERCP yesterday. Today the patient states he has had no further nausea or vomiting, abdominal pain has improved significantly. 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 Labs currently pending Objective - Vital Signs Vital signs: Vital Signs Temp 97.9 F 10/02/20 07:00 Pulse 60 10/02/20 07:00 Resp 14 10/02/20 07:00 BP 123/80 10/02/20 07:00 Pulse Ox 98 10/02/20 07:00 Intake & Output 10/01/20 10/02/20 10/02/20 18:59 06:59 18:59 Intake Total 1200 1505 Balance 1200 1505 Intake: IV 800 Intake, IV Titration 960 Amount Sodium Chloride 0.9% 1, 960 000 ml @ 120 mls/hr IV . Q8H20M SUNDAY Rx#:[id number] Oral 400 545 Other: # Voids 1 1 - Exam General appearance: The patient is alert, oriented, appears in no acute distress. HET: Head is normocephalic and atraumatic. Conjunctiva pink. Sclera mildly icteric. Neck: Supple without lymphadenopathy. Abdomen: Soft, nontender, nondistended with bowel sounds. No guarding or rigidity. Extremities: Normal skin color and turgor. No pedal edema Skin: No rashes, no jaundice Neurological: No focal deficits. Alert and oriented 3. - Labs CBC & Chem 7: 10/01/20 04:54 10/02/20 06:20 Labs: Abnormal Lab Results - Last 24 Hours (Table) 10/01/20 10/01/20 Range/Units 04:54 11:07 Glucose 106 H (74-99) mg/dL Total Bilirubin 4.0 H 5.2 H (0.2-1.2) mg/dL AST 259 H 236 H (14-35) U/L ALT 387 H 388 H (10-49) U/L Alkaline Phosphatase 167 H 164 H (41-126) U/L Microbiology - Last 24 Hours (Table) 09/30/20 08:35 Blood Culture - Preliminary Blood No Growth after 48 hours 09/30/20 08:15 Blood Culture - Preliminary Blood No Growth after 48 hours Assessment and Plan (1) Abdominal pain Narrative/Plan: This is a patient who presented to the hospital with acute onset of severe epigastric and right upper quadrant abdominal pain that started yesterday morning and had a similar episode this past Tuesday that lasted for 6 hours with resolution. He is status post cystectomy for symptomatic gallstones about a month ago. He was noted to have a mild elevation of serum transaminases and computed tomography scan of the abdomen showed a 2 mm calculus in the distal common bile duct suspicious for CBD stone. The patient underwent ERCP yesterday which found normal appearing common bile duct with a faint filling deficit in the distal common bile duct status post biliary sphincterectomy and balloon extraction. No stone seen in the ampulla but there was small amount of sludgy material that was extracted. Pancreatic duct not intentionally cannulated Current Visit: Yes Status: Acute Code(s): R10.9 - UNSPECIFIED ABDOMINAL PAIN SNOMED Code(s): 17991908 (2) Common bile duct stone Current Visit: Yes Status: Acute Code(s): K80.50 - CALCULUS OF BILE DUCT W/O CHOLANGITIS OR CHOLECYST W/O OBST SNOMED Code(s): 702947812 Plan: 1. Advance to low-fat diet 2. Pain medication as needed for primary medicine team 3. Repeat CMP ordered, results pending 4. Patient may be discharged home, if liver enzymes trending down and will not need a follow-up appointment with gastroenterology. Thank you for this consultation, we will sign off at this time Dr. Ralph Anderson I agree with the dictator's note, documented as a scribe by Desi Vora.
--- NOTE | 2020-10-15 08:22 | P.DS ---
Providers Date of admission: 10/01/20 12:16 Expected date of discharge: 10/02/20 Attending physician: Ken Heath MD Consults: 09/30/20 08:08 Consult Physician Urgent Consulting Provider: Az Bauer Consult Reason/Comments: Comment bile duct stone Do you want consulting provider notified?: Yes Consult Physician Urgent Consulting Provider: Margie Anderson Consult Reason/Comments: Comment bile duct stone Do you want consulting provider notified?: Yes [facility]: 50-year-old male to the ER for evaluation patient presents today for evaluation of abdominal pain epigastric abdominal pain right upper quadrant bowel pain with nausea. No vomiting symptoms worse with eating. Patient has recent gallbladder surgery with Dr. Bauer, patient states symptoms of been getting progressively worse and now he currently feels bloated with severe pain. Epigastric pain and nausea. CT angios of the chest is suboptimal study. No central saddle pulmonary embolism. Cannot exclude peripheral segmental and subsegmental PE. No suspicious acute process noted. Computed tomography scan abdomen and pelvis shows 2 mm distal common bile duct gallstone near the level of the duodenal ampulla EKG Interpreted by Me (EKG shows sinus rhythm 73 VT 152 QRS 78 QTc 424) 1. Choledocholithiasis; history of recent laparoscopic cholecystectomy on 09/02/2020 - patient has mild elevation of LFTs; no fever and white blood count is normal - Patient is started on IV antibiotics; continue with IV fluids; surgery on board and have started patient on a clear liquid diet; pain control with IV medications - Protonix 40 mg IV daily - GI is consulted and patient is scheduled for ERCP 2. Hypertension; continue with lisinopril 40 mg daily along with metoprolol 50 mg twice a day 3. History of A. Fibrillation/flutter; patient remains rate controlled on metoprolol; anticoagulation therapy with Eliquis 5 mg twice a day DVT prophylaxis; SCDs only; Eliqis put on hold pending ERCP CODE STATUS; full code The patient underwent ERCP --- normal appearing common bile duct with a faint filling deficit in the distal common bile duct status post biliary sphincterectomy and balloon extraction. No stone seen in the ampulla but there was small amount of sludgy material that was extracted. Pancreatic duct not intentionally cannulated 1. Advance to low-fat diet 2. Pain medication as needed for primary medicine team 3. Repeat CMP ordered, results pending 4. Patient may be discharged home, if liver enzymes trending down and will not need a follow-up appointment with gastroenterology. Patient Condition at Discharge: Good Plan - Discharge Summary Discharge Rx Participant: No New Discharge Prescriptions: New Promethazine [Phenergan] 12.5 mg PO Q6HR PRN 3 Days #10 tab PRN Reason: Nausea Continue Metoprolol Tartrate [Lopressor] 50 mg PO BID Omeprazole [PriLOSEC] 20 mg PO AC-BRKFST Apixaban [Eliquis] 5 mg PO BID lisinopriL 40 mg PO DAILY Discharge Medication List Apixaban [Eliquis] 5 mg PO BID 08/29/20 [History] Metoprolol Tartrate [Lopressor] 50 mg PO BID 08/29/20 [History] Omeprazole [PriLOSEC] 20 mg PO AC-BRKFST 08/29/20 [History] lisinopriL 40 mg PO DAILY 08/29/20 [History] Promethazine [Phenergan] 12.5 mg PO Q6HR PRN 3 Days #10 tab 10/02/20 [Rx] Follow up Appointment(s)/Referral(s): Marion Pierce DO [Primary Care Provider] - 10/07/20 12:00 pm Az Bauer MD [STAFF PHYSICIAN] - 10/14/21 2:15 pm Patient Instructions/Handouts: ERCP (Endoscopic Retrograde Cholangiopancreatography) (DC) Activity/Diet/Wound Care/Special Instructions: activity as tolerated low fat diet as tolerated Discharge Disposition: HOME SELF-CARE
== END 2020-10-02 16:50 | disposition home or self-care (01) | DRG 445 ==
LOC: EC 05:46 → 6NMEDSUR 08:10 → OBSVTOIN 10-01 12:16
PROVIDERS: ADMIT Internal Medicine; ATTEND Internal Medicine
DX: K80.50 Calculus of bile duct without cholangitis or cholecystitis without obstruction (principal); I48.92 Unspecified atrial flutter; I10 Essential (primary) hypertension; I48.91 Unspecified atrial fibrillation; K21.9 Gastro-esophageal reflux disease without esophagitis; Z20.822 Contact with and (suspected) exposure to COVID-19; Z87.891 Personal history of nicotine dependence; Z79.01 Long term (current) use of anticoagulants; Z79.899 Other long term (current) drug therapy; Z90.49 Acquired absence of other specified parts of digestive tract; Z88.0 Allergy status to penicillin
CPT/HCPCS: 36415; 43202; 43262; 71275; 74177; 74330; 80053; 82150; 83605; 83690; 83735; 83880; 84484; 85025; 85610; 85730; 87040; 87635; 93005; 96361; 96365; 96366; 96375; 99285; 99291

== ENCOUNTER 2020-10-19 21:47 | Emergency (ER) | payer OTHER ==
[2020-10-19 21:58] VITALS: BP 149/88; PULSE 70; RESP 16; TEMP 98.1
[2020-10-19 23:11] LABS: Basophils # (A) 0.1 k/uL (0-0.2); Basophils % (A) 1 %; Eosinophils # (A) 0.2 k/uL (0-0.7); Eosinophils % (A) 3 %; HCT 40.6 % (39.0-53.0); HGB 14.2 gm/dL (13.0-17.5); Lymphocytes # (A) 1.3 k/uL (1.0-4.8); Lymphocytes % (A) 20 %; MCV 82.9 fL (80.0-100.0); Mean Platelet Volume 10.1; Monocytes # (A) 0.5 k/uL (0-1.0); Monocytes % (A) 8 %; Neutrophils # (A) 4.5 k/uL (1.3-7.7); Neutrophils % (A) 67 %; Platelet Count 151 k/uL (150-450); RDW 12.9 % (11.5-15.5); WBC 6.7 k/uL (3.8-10.6)
[2020-10-19 23:15] LABS: Appearance,Urine Clear (Clear); Bilirubin,Urine Negative (Negative); Blood,Urine Negative (Negative); Color,Urine Light Yellow; Glucose,Urine (UA) Negative (Negative); Ketones,Urine Negative (Negative); Leukocyte Esterase,Urine Negative (Negative); Nitrite,Urine Negative (Negative); Protein,Urine Negative (Negative); Specific Gravity,Urine 1.014 (1.001-1.035); Urobilinogen,Urine <2.0 mg/dL (<2.0)
[2020-10-19 23:23] LABS: ALT 26 U/L (4-49); African American GFR (CKD) >90 (>60 ml/min/1.73 sqM); Albumin 4.2 g/dL (3.5-5.0); Amylase 40 U/L (30-110); Anion Gap 9 mmol/L; Blood Urea Nitrogen 23 mg/dL (9-20); Carbon Dioxide 23 mmol/L (22-30); Chloride 105 mmol/L (98-107); Glucose 109 mg/dL (74-99); Lipase 69 U/L (23-300); Non-African American GFR(CKD) >90 (>60 ml/min/1.73 sqM); Sodium 137 mmol/L (137-145); Total Bilirubin 0.8 mg/dL (0.2-1.3); Total Protein 6.8 g/dL (6.3-8.2)
[2020-10-19 23:30] LABS: AST 28 U/L (17-59); Alkaline Phosphatase 79 U/L (38-126); Potassium 4.4 mmol/L (3.5-5.1)
--- NOTE | 2020-10-19 23:33 | CT ---
EXAMINATION TYPE: CT abdomen pelvis w con DATE OF EXAM: 10/19/2020 COMPARISON: September 30, 2020 HISTORY: Epigastric pain CT DLP: 1921.1 mGycm Automated exposure control for dose reduction was used. CONTRAST: Performed with IV Contrast, patient injected with 100 mL of Isovue 300. Lung bases are clear. There is no pleural effusion. Heart size is normal. There is no pericardial eff usion. Liver spleen stomach pancreas appear intact. The bile ducts are not dilated. Gallbladder appea rs intact. There is probably a 5 mm calcified gallstone. There is no adrenal mass. Kidneys show satisfactory contrast opacification. There is no hydronephrosi s. Ureters are not dilated. There is no retroperitoneal adenopathy. Bladder distends smoothly. There is no inguinal hernia. There is no free fluid in the pelvis. There is no mesenteric edema. There is no ascites or free air. There is no bowel obstruction. Delayed images show normal renal excretion. Appendix appears normal. Lumbar vertebra have fairly normal spacing and alignment. The posterior elements are intact. There is no compression fracture. The bony pelvis appears intact. Hip joints are intact. There is 2 x 1 cm um bilical hernia that contains fat. IMPRESSION: There is probably a single calcified gallstone. The bile ducts are not dilated. There is clearing of the tiny calcification at the distal common bile duct level compared to old exam.
[2020-10-19] MEDS ORDERED: HYDROmorphone 0.5 MG/0.5 ML SYRINGE IVP STA (23:37)
--- NOTE | 2020-10-19 23:41 | ED ---
Abdominal Pain HPI - General Chief Complaint: Abdominal Pain Stated Complaint: Abdominal and back pain Time Seen by Provider: 10/19/20 22:00 Source: patient Mode of arrival: ambulatory Limitations: no limitations - History of Present Illness Initial Comments: 50-year-old male presenting today for chief complaint of right upper quadrant pain. Patient states he had a cholecystectomy this year he states a few weeks later he was back for a biliary obstruction secondary to a ductal stone. Patient states he had ERCP performed. Patient states that his pain was improved after this procedure however today after eating breakfast this morning he had the same pain he states he experienced when he had the gallbladder initially removed. He states it was right upper quadrant rating to the back he denies peptic inspiration chest pain shortness of breath. He denies any fevers jaundice diarrhea or vomiting he denies nausea. Patient has no additional comp laints she is concerned there is another stuck stone and presented to the ER for evaluation. - Related Data Home Medications Medication Instructions Recorded Confirmed Apixaban [Eliquis] 5 mg PO BID 08/29/20 10/19/20 Metoprolol Tartrate [Lopressor] 50 mg PO BID 08/29/20 10/19/20 Omeprazole [PriLOSEC] 20 mg PO AC-BRKFST 08/29/20 10/19/20 lisinopriL 40 mg PO DAILY 08/29/20 10/19/20 Previous Rx's Medication Instructions Recorded Promethazine [Phenergan] 12.5 mg PO Q6HR PRN 3 Days #10 tab 10/02/20 Allergies Allergy/AdvReac Type Severity Reaction Status Date / Time Penicillins Allergy Unknown Swelling Verified 10/19/20 22:49 Review of Systems ROS Statement: Those systems with pertinent positive or pertinent negative responses have been documented in the HPI. ROS Other: All systems not noted in ROS Statement are negative. Past Medical History Past Medical History: Atrial Flutter, GERD/Reflux, Hypertension Additional Past Medical History / Comment(s): hx h-pylori History of Any Multi-Drug Resistant Organisms: None Reported Past Surgical History: Cholecystectomy Additional Past Surgical History / Comment(s): CYST ON WRIST REMOVED. Loop recorder- currently. vasectomy Past Anesthesia/Blood Transfusion Reactions: No Reported Reaction Type of Cardiac Device: Loop Device Placement Date:: 2016 Past Psychological History: No Psychological Hx Reported Smoking Status: Former smoker Past Alcohol Use History: None Reported Past Drug Use History: None Reported - Past Family History Brother(s) Family Medical History: Blood Disorder Additional Family Medical History / Comment(s): un-named blood disorder- (platelet dysfunction treated with amicar) Father Family Medical History: Blood Disorder Additional Family Medical History / Comment(s): un-named blood disorder (platelet dysfunction treated with amicar) Mother Family Medical History: Hypertension General Exam - General Exam Comments Initial Comments: General: The patient is awake and alert, in no distress, and does not appear acutely ill. Eye: Pupils are equal, round and reactive to light, extra-ocular movements are intact. No nystagmus. There is normal conjunctiva bilaterally. No signs of icterus. Ears, nose, mouth and throat: There are moist mucous membranes and no oral lesions. Neck: The neck is supple, there is no tenderness or JVD. Cardiovascular: There is a regular rate and rhythm. No murmur, rub or gallop is appreciated. Respiratory: Lungs are clear to auscultation, respirations are non-labored, breath sounds are equal. No wheezes, stridor, rales, or rhonchi. Gastrointestinal: Soft, non-distended, ruq tenderness to palpation of the abdomen, abdomen without masses or organomegaly noted. There is no rebound or guarding present. Musculoskeletal: Normal ROM, no tenderness. Strength 5/5. Sensation intact. Radial and DP pulses equal bilaterally 2+. Neurological: A&O x 3. CN II-XII intact, There are no obvious motor or sensory deficits. Coordination appears grossly intact. Speech is normal. Skin: Skin is warm and dry and no rashes or lesions are noted. Psychiatric: Cooperative, appropriate mood & affect, normal judgment. Limitations: no limitations Course Vital Signs 10/19/20 21:55 Temperature 98.1 F Pulse Rate 70 Respiratory 16 Rate Blood Pressure 149/88 O2 Sat by Pulse 99 Oximetry Medical Decision Making - Medical Decision Making Labs stable. biliary labs WNL. Patient pain on exam overall mild. CT revealed a calcified stone but not duct dilation/obstruction. Patient VS WNL. no chest pain or dyspnea and at this time we feel patient is stable for discharge with pcp f/u. patient is agreeable to care plan and discharge. he is to call GI this morning (10/20) to scheduled appointment. - Lab Data Result diagrams: 10/19/20 22:49 10/19/20 22:49 Lab Results 10/19/20 10/19/20 10/19/20 Range/Units 22:49 22:49 22:49 WBC 6.7 (3.8-10.6) k/uL RBC 4.90 (4.30-5.90) m/uL Hgb 14.2 (13.0-17.5) gm/dL Hct 40.6 (39.0-53.0) % MCV 82.9 (80.0-100.0) fL MCH 29.0 (25.0-35.0) pg MCHC 35.0 (31.0-37.0) g/dL RDW 12.9 (11.5-15.5) % Plt Count 151 (150-450) k/uL MPV 10.1 Neutrophils % 67 % Lymphocytes % 20 % Monocytes % 8 % Eosinophils % 3 % Basophils % 1 % Neutrophils # 4.5 (1.3-7.7) k/uL Lymphocytes # 1.3 (1.0-4.8) k/uL Monocytes # 0.5 (0-1.0) k/uL Eosinophils # 0.2 (0-0.7) k/uL Basophils # 0.1 (0-0.2) k/uL Sodium 137 (137-145) mmol/L Potassium 4.4 (3.5-5.1) mmol/L Chloride 105 (98-107) mmol/L Carbon Dioxide 23 (22-30) mmol/L Anion Gap 9 mmol/L BUN 23 H (9-20) mg/dL Creatinine 0.97 (0.66-1.25) mg/dL Est GFR (CKD-EPI)AfAm >90 (>60 ml/min/1.73 sqM) Est GFR (CKD-EPI)NonAf >90 (>60 ml/min/1.73 sqM) Glucose 109 H (74-99) mg/dL Calcium 9.0 (8.4-10.2) mg/dL Total Bilirubin 0.8 (0.2-1.3) mg/dL AST 28 (17-59) U/L ALT 26 (4-49) U/L Alkaline Phosphatase 79 (38-126) U/L Total Protein 6.8 (6.3-8.2) g/dL Albumin 4.2 (3.5-5.0) g/dL Amylase 40 (30-110) U/L Lipase 69 (23-300) U/L Urine Color Light Yellow Urine Appearance Clear (Clear) Urine pH 7.0 (5.0-8.0) Ur Specific [place] 1.014 (1.001-1.035) Urine Protein Negative (Negative) Urine Glucose (UA) Negative (Negative) Urine Ketones Negative (Negative) Urine Blood Negative (Negative) Urine Nitrite Negative (Negative) Urine Bilirubin Negative (Negative) Urine Urobilinogen <2.0 (<2.0) mg/dL Ur Leukocyte Esterase Negative (Negative) Disposition Clinical Impression: Abdominal pain, RUQ pain Disposition: HOME SELF-CARE Condition: Good Instructions (If sedation given, give patient instructions): Abdominal Pain (ED) Additional Instructions: Please use medication as discussed. Please follow-up with family doctor in the next 2 days, recommend calling GI tomorrow morning to scheduled appointment. Please return to emergency room if the symptoms increase or worsen or for any other concerns. Is patient prescribed a controlled substance at d/c from ED?: No Referrals: Marion Pierce DO [Primary Care Provider] - 1-2 days Time of Disposition: 23:41
== END 2020-10-20 00:28 | disposition home or self-care (01) ==
LOC: EC 21:47
DX: R10.11 Right upper quadrant pain (principal); I48.92 Unspecified atrial flutter; I10 Essential (primary) hypertension; K21.9 Gastro-esophageal reflux disease without esophagitis; Z79.01 Long term (current) use of anticoagulants; Z79.899 Other long term (current) drug therapy; Z88.0 Allergy status to penicillin; Z87.891 Personal history of nicotine dependence; Z90.49 Acquired absence of other specified parts of digestive tract
CPT/HCPCS: 36415; 80053; 82150; 83690; 85025; 81003; 74177; 99284; 96374; J1170; Q9967

== ENCOUNTER 2020-10-29 09:30 | Day surgery (SDC) | payer OTHER ==
[2020-10-28 08:31] VITALS: BMI 38.7
[~2020-10-29 09:30] MED LIST changes: -ACETAMINOPHEN TAB 500 MG TAB PO PRN; -BUPIVACAINE (PF) 0.5% 30 ML VIAL SQ ONE; -CLINDAMYCIN 900 MG in DEXTROSE 5% IN WATER 50 ML IVPB PRN; -DEXAMETHASONE SOD PHOSPHATE 4 MG/ML 1 ML VIAL IV ONE; -GENTAMICIN 40 MG/ML 2 ML VIAL ONE; -GENTAMICIN 440 MG in SODIUM CHLORIDE 0.9% 100 ML IVPB PRN; -GLYCOPYRROLATE 0.2 MG/ML 2 ML VIAL ONE; -HEPARIN SODIUM,PORCINE 5,000 UNIT/ML 1 ML VIAL SQ PRN; -HYDROmorphone 0.5 MG/0.5 ML SYRINGE IVP PRN; -KETOROLAC 15 MG/ML 1 ML VIAL ONE; -LACTATED RINGERS 1,000 ML IV ONE; -LIDOCAINE 1% INJ 10MG/ML (20 ML MDV) ONE; -MIDAZOLAM 2 MG/2 ML VIAL ONE; -NEOSTIGMINE 1 MG/ML 10 ML VIAL ONE; -ONDANSETRON 4 MG/2 ML VIAL IVP ONE; -PROPOFOL 10 MG/ML 20 ML VIAL IV ONE; -ROCURONIUM 10 MG/ML (10 ML VIAL) IV ONE; -SUCCINYLCHOLINE CHLORIDE 100 MG/5 ML SYR IV ONE; -ePHEDrine SULFATE/0.9% NACL/PF 50 MG/5 ML SYRINGE IV ONE; -fentaNYL (PF) 50 MCG/ML 2 ML AMP ONE
[2020-10-29] MEDS ORDERED: LIDOCAINE 1% (10MG/ML) FOR IV START INTRADERMA ONE (10:41)
[2020-10-29 10:45] VITALS: TEMP 98
[2020-10-29] MEDS ORDERED: LIDOCAINE 1% INJ 10MG/ML (20 ML MDV) ONE (11:59)
[2020-10-29] MEDS ORDERED: fentaNYL (PF) 50 MCG/ML 2 ML AMP ONE (11:59)
[2020-10-29] MEDS ORDERED: MIDAZOLAM 2 MG/2 ML VIAL ONE (11:59)
[2020-10-29] MEDS ORDERED: GLUCAGON 1 MG/ML VIAL ONE (11:59)
[2020-10-29] MEDS ORDERED: KETAMINE 10 MG/ML 20 ML VIAL ONE (11:59)
[2020-10-29] MEDS ORDERED: PROPOFOL 10 MG/ML 20 ML VIAL IV ONE (11:59)
[2020-10-29] MEDS ORDERED: IOPAMIDOL-300 50ML BTL INJ ONE (12:11)
--- NOTE | 2020-10-29 12:13 | P.PCN ---
Date of Procedure: 10/29/20 Procedure(s) Performed: Brief history: Patient is a 50-year-old white male scheduled for an ERCP as part of evaluation of intermittent episodes of severe epigastric abdominal pain for the last 1 week duration. He was admitted hospital 3 weeks ago with jaundice and elevated LFTs and underwent an ERCP with CBD stone extraction. He underwent gallbladder surgery in August of this year. In the last 1 week he had 3 episodes of severe epigastric pain radiating to the right upper quadrant. Because of clinical suspicion for recurrent severe stones he scheduled for an ERCP today Procedure performed: ERCP with balloon sweep Preoperative diagnoses: severe epigastric pain for the last 1 week duration IV sedation per anesthesia: Procedure: After informed consent was obtained from the patient and after the risks benefits and complications including bleeding perforation and pancreatitis explained in detail the patient was brought into the endoscopy unit. The patient was placed in prone position and IV conscious sedation was administered by anesthesia under continuous monitoring. The Olympus side-viewing duodenoscope was then inserted into the mouth and esophagus intubated without any difficulty. The scope was gradually advanced into the stomach and duodenum. The major papilla was identified without any difficulty. There was evidence of biliary enterotomy noted. Using the 8.5 mm balloon the common bile duct was cannulated without any difficulty and upon injection of the dye there were no filling defects noted. At this time the balloon was inflated and gently withdrawn and did not see any stones exiting the ampulla. An occlusion cholangiogram was performed and no other filling defects were noted. Patient tolerated the procedure well. Impression: Patent biliary sphincterotomy Normal-appearing common bile duct with no filling defects, status post balloon sweep Recommendations: The findings of this examination were discussed with the patient as well as a family. He will be seen in office in 4 weeks.
--- NOTE | 2020-10-29 12:58 | FL ---
Fluoroscopy HISTORY: Pain 1 minute and 7 seconds fluoroscopy time supplied to the referring clinician. 1 intraoperative C-arm images document the procedure. See dictated report from gastroenterology.
[2020-10-29 13:14] VITALS: BP 116/77; PULSE 60; RESP 18
== END 2020-10-29 13:11 | disposition home or self-care (01) ==
LOC: ORWHC2ENDO 09:30
PROVIDERS: ATTEND Internal Medicine Gastroenterology
DX: R10.13 Epigastric pain (principal); R10.11 Right upper quadrant pain; I10 Essential (primary) hypertension; K21.9 Gastro-esophageal reflux disease without esophagitis; Z87.19 Personal history of other diseases of the digestive system; Z79.01 Long term (current) use of anticoagulants; Z79.899 Other long term (current) drug therapy; Z86.79 Personal history of other diseases of the circulatory system; Z88.0 Allergy status to penicillin; Z98.890 Other specified postprocedural states
CPT/HCPCS: 74330; 43260; J2250; J1610; J2001; J3010; J2704; Q9967

== ENCOUNTER → 2022-08-02 | Outpatient (CLI) | payer OTHER ==
--- NOTE | 2022-08-02 09:30 | US ---
EXAMINATION TYPE: US abdomen complete DATE OF EXAM: 08/02/2022 COMPARISON: NONE CLINICAL HISTORY: R10.11 RUQ PAIN. RUQ pain patient had gallbladder out last year and states in opera tive report. There's a gallbladder like structure seen in the fossa. Had second tech look too. TECHNIQUE: Multiple sonographic images of the abdomen are obtained. FINDINGS: EXAM MEASUREMENTS: Liver Length: 15.6 cm Gallbladder Wall: Surgically absent? CBD: .7 cm Spleen: 14.3 cm Right Kidney: 12.1 x 5.9 x 5.6 cm Left Kidney: 13.41 x 5.7 x 5.2 cm Pancreas: Obscured by bowel gas Liver: Increased attenuation Gallbladder: Surgically absent? Evidence for sonographic Burr's sign: No CBD: wnl Spleen: Splenomegaly measuring up to 14.3 cm. Right Kidney: wnl Left Kidney: wnl Upper IVC: wnl Abd Aorta: wnl The liver is homogenous in echotexture with increased echotexture. The intrahepatic portion of the I VC and proximal abdominal aorta are within normal limits. The gallbladder is not definitively visuali zed. Common bile duct is unremarkable. The visualized portions of the pancreas are homogenous. The spleen is unremarkable. Kidneys are symmetric and free of hydronephrosis. No renal lesions are seen . IMPRESSION: 1. Hepatocellular disease commonly relating to Hepatic steatosis. 2. The gallbladder is not definitively visualized and may be surgically absent. 3. 3. Mild splenomegaly.
== END | disposition home or self-care (01) ==
LOC: RADUSWWP 07:31
PROVIDERS: ATTEND Family Medicine
DX: K76.89 Other specified diseases of liver (principal); R16.1 Splenomegaly, not elsewhere classified
CPT/HCPCS: 76700

== ENCOUNTER → 2022-08-12 | Outpatient (CLI) | payer OTHER ==
--- NOTE | 2022-08-12 10:20 | CT ---
EXAMINATION TYPE: CT abdomen wo/w con DATE OF EXAM: 08/12/2022 COMPARISON: CT abdomen and pelvis October 19, 2020 and older CTs HISTORY: RUQ pain CT DLP: 2964.3 mGycm Automated exposure control for dose reduction was used. TECHNIQUE: Helical acquisition of images was performed from the lung bases through the top of iliac crest to include entire abdomen. CONTRAST: Performed with Oral Contrast and without and with IV Contrast, patient injected with 70 mL of Isovue 300. FINDINGS: LUNG BASES: Please refer to same day CTA chest report. No significant abnormality LIVER/GB: There is stable 5 mm calcification likely adjacent to gallbladder or in the anterior inferi or wall redemonstrated axial image 22 series 3. Intraluminal calcified nondependent gallstone less li [place] but not entirely excluded. No surrounding fluid or fat stranding current study. No biliary dilat ation. PANCREAS: No significant abnormality is seen. SPLEEN: No significant abnormality is seen. ADRENALS: No significant abnormality is seen. KIDNEYS: Noncontrast images show no renal calculi bilaterally. Postcontrast images show symmetric cor tical medullary uptake and excretion without hydronephrosis seen bilaterally. BOWEL: Oral contrast hasn't reached level of the terminal ileum making evaluation of distal bowel sli ghtly suboptimal. No suspicious small or large bowel dilatation is seen. Normal-appearing appendix is noted. LYMPH NODES: No greater than 1cm abdominal lymph nodes are appreciated. OSSEOUS STRUCTURES: [id number] multilevel spurring in the thoracolumbar spine is redemonstrated . Facet arthropathy lower lumbar levels is again seen. OTHER: Stable small size umbilical hernia. IMPRESSION: No suspicious new or acute findings are evident to account for patient's symptoms of righ t upper quadrant pain.
== END | disposition home or self-care (01) ==
LOC: RADCTMAIN 08:01
PROVIDERS: ATTEND Family Medicine
DX: R93.5 Abnormal findings on diagnostic imaging of other abdominal regions, including retroperitoneum (principal)
CPT/HCPCS: 74170; Q9967